=== PATIENT | female | born 1965 | race Caucasian/White ===

== ENCOUNTER 2016-10-22 07:20 | Day surgery (SDC) | payer OTHER ==
[2016-10-22] MEDS ORDERED: MIDAZOLAM 2 MG/2 ML INJ ONE (08:01)
[2016-10-22] MEDS ORDERED: DEXAMETHASONE SOD PHOSPHATE INJ 4 MG/1 ML VIAL ONE (08:01)
[2016-10-22] MEDS ORDERED: FENTANYL CITRATE INJ/PF 100 MCG/2 ML AMPUL ONE (08:01)
[2016-10-22] MEDS ORDERED: ONDANSETRON HCL INJ/PF 4 MG/2 ML SDV ONE (08:02)
[2016-10-22] MEDS ORDERED: SUCCINYLCHOLINE CHLORIDE INJ 200 MG/10 ML VIAL ONE (08:02)
[2016-10-22] MEDS ORDERED: PROPOFOL INJ 200 MG/20 ML VIAL IV ONE (08:02)
[2016-10-22] MEDS ORDERED: MORPHINE SULFATE 10 MG/ML INJ ONE (08:02)
[2016-10-22] MEDS ORDERED: OXYMETAZOLINE HCL 0.05% NASAL SPRAY 15 ML BOTTLE ONE (08:03)
[2016-10-22] MEDS: LIDOCAINE 1%/EPINEPHRINE INJ 20 ML VIAL ONE ×2 (08:36→08:40)
--- NOTE | 2016-10-22 10:43 | [facility] OPERATIVE REPORT E ---
[facility] Operative Report NAME: TEN HUGHES AGE: 51Y DATE OF SURGERY: ROOM: PREOPERATIVE DIAGNOSES: 1. Deviated septum. 2. Nasal obstruction. 3. Lauren bullosa enlargement, bilateral. 4. Inferior turbinate hypertrophy. 5. Frontal sinusitis. POSTOPERATIVE DIAGNOSES: 1. Deviated septum. 2. Nasal obstruction. 3. Lauren bullosa enlargement, bilateral. 4. Inferior turbinate hypertrophy. 5. Frontal sinusitis. OPERATION: 1. Septoplasty. 2. Reduction, lauren bullosa. 3. Inferior turbinate reduction. 4. Sinuplasty - bilateral frontal sinuplasty. 5. Enlargement of the nasal frontal ducts. SURGEON: GENI CRUMP M.D., FACS. ANESTHESIA: General. INDICATIONS: A 51-year-old female with a long history, chronic history of sinus disease, nasal obstruction, recurrent sinus infections, and headache. She has been treated medically to the full extent. Preoperative sinus and CT scans reviewed. Examination of the nose shows a deviated septum corroborated on sinus CT, large lauren bullosa, reduced right nasal fossa. She is taken to the operating room for several surgical procedures for correction and improvement of the nasal airway. Risks and benefits of these procedures discussed and accepted preoperatively. PROCEDURE: General anesthesia via orotracheal tube; patient placed in the slight reverse Trendelenburg position, and prepped and draped for nasal sinus surgery. Time-out procedure was performed. Previously placed Afrin nasal packs removed from the nose. Nose infiltrated with 1% Xylocaine with 1:100,000 epinephrine solution for a total of 8 mL. There was a marked deviated septum noted, large spur formation to the left and a large vomer going to the right. First, septoplasty was performed. A left hemitransfixion incision made, and a left mucoperichondrial flap elevated. Junction between the perpendicular plate of the ethmoid and quadrangular cartilage divided, and a right posterior tunnel created. The large vomer and twist to the left was removed in piecemeal fashion with the open Gladis forceps. Next, an osteotome was used to remove a portion of the maxillary crest, and this was trimmed. The remaining anterior septum was trimmed to allow this to regain a midline position without tension. The flaps were then reapproximated and held in position with 3-0 chromic catgut mattress suture utilizing a quilting technique. The hemitransfixion incision was closed with interrupted 4-0 Vicryl. Next, anterior turbinate reduction was performed with the Kervin elevator. Next, lauren bullosa was reduced bilaterally with the Kristin forceps. Next, a sinuplasty was performed with the Acclarent Sinuplasty apparatus and light-guarded instruments. The sinuplasty Acclarent was inserted through the left nares into the middle meatus. The guidewire with light affixed was inserted into the left frontal. The balloon was then deployed in the usual fashion to 10 atmospheres, and the nasofrontal duct was opened. A similar procedure was performed for the right nasofrontal duct. Patient tolerated the entire procedure well. Next, Rich airway splints were placed in each side of the septum and held in position with 2-0 Prolene suture. A drip pad was applied to the nose. Total blood loss for the procedure approximately 20 mL. Patient was taken to the recovery room area in satisfactory condition. DICTATING PHYSICIAN: GENI CRUMP M.D. [id number] PHY#: [id number] ID: [id number] JOB#: [id number] ACCT: [id number] cc:GENI CRUMP M.D. >
== END 2016-10-22 12:20 | disposition home or self-care (01) ==
LOC: SC 07:20
PROVIDERS: ATTEND Otolaryngology
PROC: 09TL8ZZ Resection of Nasal Turbinate, Via Natural or Artificial Opening Endoscopic (ICD-10-PCS; 2016-10-22)
PROC: 09QS4ZZ Repair Right Frontal Sinus, Percutaneous Endoscopic Approach (ICD-10-PCS; 2016-10-22)
PROC: 09QT4ZZ Repair Left Frontal Sinus, Percutaneous Endoscopic Approach (ICD-10-PCS; 2016-10-22)
PROC: 09BM4ZZ Excision of Nasal Septum, Percutaneous Endoscopic Approach (ICD-10-PCS; principal; 2016-10-22 08:15)
PROC: 095K4ZZ Destruction of Nasal Mucosa and Soft Tissue, Percutaneous Endoscopic Approach (ICD-10-PCS; 2016-10-22 08:15)
DX: J34.2 Deviated nasal septum (principal); J34.89 Other specified disorders of nose and nasal sinuses; J34.3 Hypertrophy of nasal turbinates; J32.1 Chronic frontal sinusitis; D64.9 Anemia, unspecified; G40.909 Epilepsy, unspecified, not intractable, without status epilepticus; E89.0 Postprocedural hypothyroidism; Z79.82 Long term (current) use of aspirin; Z79.899 Other long term (current) drug therapy
CPT/HCPCS: 30520; 31240; 30150; 31296; C1751; J2250; J1100; J3010; J3490 ×2; J2270; J0330; J2405; J2704; 160

== ENCOUNTER 2019-04-01 20:55 | Emergency (ER) | payer OTHER ==
[2019-04-01] MEDS ORDERED: ONDANSETRON 4 MG TAB.RAPDIS PO ONE (22:06)
[2019-04-01] MEDS ORDERED: KETOROLAC TROMETHAMINE 60 MG/2 ML SDV IM ONE (22:06)
[2019-04-01 22:44] LABS: ABSOLUTE EOSINOPHILS # (AUTO) 0.3 10^3/uL (0.0-0.6); ABSOLUTE LYMPHOCYTES (AUTO) 1.7 10^3/uL (0.5-4.7); ABSOLUTE MONOCYTES (AUTO) 0.6 10^3/uL (0.1-1.4); ABSOLUTE NEUT (AUTO) 3.7 10^3/uL (1.7-8.2); BASOPHILS % (AUTO) 0.6 % (0-2); EOSINOPHILS % (AUTO) 4.7 % (0-6); HEMATOCRIT 41.6 % (36.0-47.0); HEMOGLOBIN 14.5 g/dL (12.0-15.5); MEAN CORPUSCULAR HEMOGLOBIN 31.3 pg (27.0-33.4); MEAN CORPUSCULAR HGB CONC 34.9 g/dL (32.0-36.0); MEAN CORPUSCULAR VOLUME 90 fl (80-97); MONOCYTES % (AUTO) 9.2 % (3-13); PLATELET COUNT 313 10^3/uL (150-450); RED BLOOD COUNT 4.64 10^6/uL (3.72-5.28); RED CELL DISTRIBUTION WIDTH 13.3 % (11.5-14.0); SEGMENTED NEUTROPHILS % (AUTO) 58.5 % (42-78); TOTAL CELLS COUNTED % (AUTO) 100 %; WHITE BLOOD COUNT 6.3 10^3/uL (4.0-10.5)
[2019-04-01 22:51] LABS: APPEARANCE,URINE CLOUDY; BILIRUBIN,URINE NEGATIVE (NEGATIVE); CALCIUM OXALATE CRYSTALS,URINE FEW /HPF; COLOR,URINE YELLOW; GLUCOSE, URINE NEGATIVE (NEGATIVE); KETONES,URINE NEGATIVE (NEGATIVE); LEUKOCYTE ESTERASE,URINE TRACE (NEGATIVE); NITRITE,URINE NEGATIVE (NEGATIVE); PROTEIN,URINE 30 mg/dL (NEGATIVE); URINE SPECIFIC GRAVITY 1.015; UROBILINOGEN,URINE NEGATIVE mg/dL (<2.0)
--- NOTE | 2019-04-01 22:54 | ER Document Report ---
ED Medical Screen (RME) - General Chief Complaint: Flank Pain Stated Complaint: LEFT SIDED ABDOMINAL PAIN/HEMATURIA Time Seen by Provider: 04/01/19 22:03 Primary Care Provider: LAURYN CABELLO NP [Primary Care Provider] - Follow up as needed TRAVEL OUTSIDE OF THE [place] IN LAST 30 DAYS: No - HPI Notes: 04/01/19 22:07 54-year-old female to the emergency department with complaints of left-sided flank pain that began 1 week ago and has not gotten better. She states that saw her primary care physician and was placed on Cipro for possible urinary tract infection. She states she completed the 5-day course of Cipro but her pain is continued. She states that she is noted dark urine and today she saw blood in it. She states she does not have a history of kidney stones. She does admit to a history of pyelonephritis. She denies any fevers or chills. She denies any vomiting but endorses nausea. She denies any diarrhea. I performed a brief medical screening exam on the patient. On brief exam, she has left upper quadrant and left lower quadrant abdominal pain. She has no rebound or guarding. She is no CVA tenderness bilaterally. However her report of flank pain with hematuria is concerning for possible kidney stone so we will send for CT scan and obtain labs. Left main side ER provider further evaluate and manage her care at this evening. - Related Data Allergies/Adverse Reactions: No Known Allergies Allergy (Verified 10/22/16 07:50) Home Medications: Synthroid Past Medical History - Social History Frequency of alcohol use: None Drug Abuse: None - Past Medical History Cardiac Medical History: Reports: Hx Hypercholesterolemia Denies: Hx Heart Attack, Hx Hypertension Pulmonary Medical History: Denies: Hx Asthma Neurological Medical History: Reports: Hx Seizures - LAST 26 YRS AGO. Denies: Hx Cerebrovascular Accident Endocrine Medical History: Reports: Hx Hypothyroidism GI Medical History: Reports: Hx Gastroesophageal Reflux Disease, Hx Irritable Bowel, Hx Colonoscopy, Hx Endoscopy. Denies: Hx Hepatitis, Hx Hiatal Hernia, Hx Ulcer Musculoskeltal Medical History: Reports Hx Arthritis, Reports Hx Musculoskeletal Deformity, Reports Hx Musculoskeletal Trauma Psychiatric Medical History: Reports: Hx Anxiety, Hx Depression Traumatic Medical History: Reports: Hx Fractures Infectious Medical History: Denies: Hx Hepatitis Past Surgical History: Reports: Hx Breast Surgery - Masses removed, Hx Hysterectomy, Hx Kidney (Renal Surgery) - Adrenal mass removed, Hx Orthopedic Surgery - bunion removal james feet plate in right fifth finger, Hx Thyroid Surgery - Heart of thyroid removed. Denies: Hx Mastectomy, Hx Open Heart Surgery, Hx Pacemaker - Immunizations Hx Diphtheria, Pertussis, Tetanus Vaccination: Yes Physical Exam - Vital signs Vitals: Temp Pulse Resp BP Pulse Ox 97.7 F 92 16 161/92 H 98 04/01/19 21:27 04/01/19 21:27 04/01/19 21:27 04/01/19 21:27 04/01/19 21:27 Course - Vital Signs Vital signs: Temp Pulse Resp BP Pulse Ox 97.7 F 92 16 161/92 H 98 04/01/19 21:27 04/01/19 21:27 04/01/19 21:27 04/01/19 21:27 04/01/19 21:27 Doctor's Discharge - Discharge Referrals: LAURYN CABELLO, [facility] REPA[facility] [Primary Care Provider] - Follow up as needed
[2019-04-01 23:00] LABS: ALBUMIN 4.4 g/dL (3.5-5.0); ALKALINE PHOSPHATASE 94 U/L (38-126); ANION GAP 10 (5-19); ASPARTATE AMINO TRANSFERASE 39 U/L (14-36); BILIRUBIN,DIRECT 0.2 mg/dL (0.0-0.4); BILIRUBIN,TOTAL 0.3 mg/dL (0.2-1.3); BLOOD UREA NITROGEN 10 mg/dL (7-20); CALCIUM 10.1 mg/dL (8.4-10.2); CARBON DIOXIDE 31 mmol/L (22-30); CHLORIDE 100 mmol/L (98-107); GLUCOSE 109 mg/dL (75-110); POTASSIUM 4.3 mmol/L (3.6-5.0); TOTAL PROTEIN 7.7 g/dL (6.3-8.2)
--- NOTE | 2019-04-02 00:37 | RADIOLOGY REPORT (SQ) ---
EXAM DESCRIPTION: CT ABDOMEN PELVIS WITHOUT IV CONTRAST COMPLETED DATE/TME: 04/01/2019 22:05 CLINICAL HISTORY: 54 years Female, left flank pain Comparison: None. Technique: No contrast. Coronal and sagittal reformat. This exam was performed according to our departmental dose-optimization program, which includes automated exposure control, adjustment of the mA and/or kV according to patient size and/or use of iterative reconstruction technique.[facility]: Dose Right [facility]: CareDose [facility]: Dose Right [facility]: Teradose 4D [facility]: [employer] LIMITATIONS: None Findings: 0.2 cm x 0.4 cm left proximal ureteral stone at the L2 level with mild left hydronephrosis/hydroureter. 0.4 cm right renal stone. Atherosclerotic vascular disease. Left renal arterial calcification. Calcification at the right adrenal fossa probably due to prior adrenal insult. Small focal right gluteal subcutaneous emphysema. No ascites. No pneumoperitoneum. No evidence of appendicitis. Appendix not definitively discerned. No bowel obstruction. No evidence of abdominal aortic aneurysm. No gross evidence of thecal sac/cord or nerve root compression. Unenhanced lower thorax, abdominopelvic structures, and musculoskeleton appear otherwise grossly unremarkable. Impression: 1. 0.4 x 0.2 cm left proximal ureteral stone with low-grade obstruction. 2. 0.4 cm right renal stone.
--- NOTE | 2019-04-02 06:16 | ER Document Report ---
ED General - General Chief Complaint: Flank Pain Stated Complaint: LEFT SIDED ABDOMINAL PAIN/HEMATURIA Time Seen by Provider: 04/01/19 22:03 Primary Care Provider: LAURYN CABELLO [facility] [Primary Care Provider] - Follow up as needed TRAVEL OUTSIDE OF THE [place] IN LAST 30 DAYS: No - HPI Notes: This is a 54-year-old female who presents today with a complaint of left flank pain, hematuria that started last night. Patient states that this feels like a kidney stone pain. She describes her symptoms as moderate. She denies any fever or chills. The pain was worse with palpation. Patient was given Toradol prior to my evaluation. She feels much better now. In fact, she was sleeping when I got into the room. She states that helped significantly. - Related Data Allergies/Adverse Reactions: No Known Allergies Allergy (Verified 10/22/16 07:50) Home Medications: Synthroid Past Medical History - Social History Smoking Status: Never Smoker Frequency of alcohol use: None Drug Abuse: None Family History: Arthritis, CVA, Hyperlipidemia, Hypertension, Malignancy Patient has suicidal ideation: No Patient has homicidal ideation: No - Past Medical History Cardiac Medical History: Reports: Hx Hypercholesterolemia Denies: Hx Heart Attack, Hx Hypertension Pulmonary Medical History: Denies: Hx Asthma Neurological Medical History: Reports: Hx Seizures - LAST 26 YRS AGO. Denies: Hx Cerebrovascular Accident Endocrine Medical History: Reports: Hx Hypothyroidism GI Medical History: Reports: Hx Gastroesophageal Reflux Disease, Hx Irritable Bowel, Hx Colonoscopy, Hx Endoscopy. Denies: Hx Hepatitis, Hx Hiatal Hernia, Hx Ulcer Musculoskeletal Medical History: Reports Hx Arthritis, Reports Hx Musculoskeletal Deformity, Reports Hx Musculoskeletal Trauma Psychiatric Medical History: Reports: Hx Anxiety, Hx Depression Traumatic Medical History: Reports: Hx Fractures Infectious Medical History: Denies: Hx Hepatitis Past Surgical History: Reports: Hx Breast Surgery - Masses removed, Hx Hysterectomy, Hx Kidney (Renal Surgery) - Adrenal mass removed, Hx Orthopedic Surgery - bunion removal james feet plate in right fifth finger, Hx Thyroid Surgery - Heart of thyroid removed. Denies: Hx Mastectomy, Hx Open Heart Surgery, Hx Pacemaker - Immunizations Hx Diphtheria, Pertussis, Tetanus Vaccination: Yes Review of Systems - Review of Systems Cardiovascular: denies: Chest pain Gastrointestinal: denies: Diarrhea, Vomiting Genitourinary: Flank pain, Hematuria. denies: Dysuria Neurological/Psychological: denies: Headaches -: Yes All other systems reviewed and negative Physical Exam - Vital signs Vitals: Temp Pulse Resp BP Pulse Ox 97.7 F 92 16 161/92 H 98 04/01/19 21:27 04/01/19 21:27 04/01/19 21:27 04/01/19 21:27 04/01/19 21:27 - General General appearance: Appears well, Alert - Respiratory Respiratory status: No respiratory distress Chest status: Nontender Breath sounds: Normal Chest palpation: Normal - Cardiovascular Rhythm: Regular Heart sounds: Normal auscultation Murmur: No - Abdominal Inspection: Normal - Unremarkable exam. No tenderness. Distension: No distension Bowel sounds: Normal Tenderness: Nontender Organomegaly: No organomegaly - Back Back: Normal, Nontender. No: CVA tenderness - Neurological Neuro grossly intact: Yes Cognition: Normal Orientation: AAOx4 Con Coma Scale Eye Opening: Spontaneous Con Coma Scale Verbal: Oriented Con Coma Scale Motor: Obeys Commands Con Coma Scale Total: 15 Speech: Normal Motor strength normal: LUE, RUE, LLE, RLE Sensory: Normal - Psychological Associated symptoms: Normal affect, Normal mood Course - Re-evaluation Re-evalutation: 04/02/19 06:18 Letter capacious consistent with right ureteral colic and probably mild UTI. Labs and CT reviewed and discussed with patient. We will put her on Percocet for pain. Will cover her bacteriuria with Keflex. She is stable for discharge. - Vital Signs Vital signs: Temp Pulse Resp BP Pulse Ox 97.4 F 71 19 155/79 H 97 04/02/19 01:49 04/02/19 01:49 04/02/19 01:49 04/02/19 01:49 04/02/19 01:49 - Laboratory Result Diagrams: 04/01/19 22:25 04/01/19 22:25 Laboratory results interpreted by me: 04/01/19 04/01/19 22:25 22:25 Carbon Dioxide 31 H AST 39 H Urine Protein 30 H Urine Blood LARGE H Ur Leukocyte Esterase TRACE H Discharge - Discharge Clinical Impression: Renal colic, Acute UTI Condition: Good Disposition: HOME, SELF-CARE Instructions: Urinary Tract Infection ([facility]), Cephalexin ([facility]), Kidney Stone ([facility]) Additional Instructions: Return if fever, worse or concerns. Prescriptions: Tamsulosin HCl [Flomax 0.4 mg Cap.sr] 0.4 mg PO DAILY #7 cap.sr.24h Cephalexin Monohydrate [Keflex 500 mg Capsule] 500 mg PO TID 10 Days #30 capsule Oxycodone HCl/Acetaminophen [Percocet 5-325 mg Tablet] 1 tab PO Q6 PRN #15 tab PRN Reason: For Pain Referrals: LAURYN CABELLO, [facility] [Primary Care Provider] - Follow up as needed
[2019-04-02] MEDS ORDERED: CEPHALEXIN 500 MG CAPSULE PO ONE (06:20)
[2019-04-02 06:42] VITALS: BP 158/68
== END 2019-04-02 06:40 | disposition home or self-care (01) ==
LOC: ER 20:55
DX: N39.0 Urinary tract infection, site not specified (principal); R31.9 Hematuria, unspecified; N23 Unspecified renal colic; R82.71 Bacteriuria; Z87.19 Personal history of other diseases of the digestive system
CPT/HCPCS: 36415; 83690; 84703; 85025; 80053; 81001; 74176; J1885; S0119; 96374; 99284

== ENCOUNTER 2019-06-05 03:02 | Emergency (ER) | payer OTHER ==
[2019-06-05 03:51] LABS: ALBUMIN 4.7 g/dL (3.5-5.0); ALKALINE PHOSPHATASE 111 U/L (38-126); ANION GAP 12 (5-19); ASPARTATE AMINO TRANSFERASE 30 U/L (14-36); BILIRUBIN,DIRECT 0.2 mg/dL (0.0-0.4); BILIRUBIN,TOTAL 0.5 mg/dL (0.2-1.3); BLOOD UREA NITROGEN 12 mg/dL (7-20); CALCIUM 10.2 mg/dL (8.4-10.2); CARBON DIOXIDE 28 mmol/L (22-30); CHLORIDE 98 mmol/L (98-107); GLUCOSE 161 mg/dL (75-110); POTASSIUM 3.9 mmol/L (3.6-5.0); TOTAL PROTEIN 8.2 g/dL (6.3-8.2)
[2019-06-05 03:52] LABS: ABSOLUTE BASOPHILS # (AUTO) 0.1 10^3/uL (0.0-0.2); ABSOLUTE EOSINOPHILS # (AUTO) 0.2 10^3/uL (0.0-0.6); ABSOLUTE LYMPHOCYTES (AUTO) 1.8 10^3/uL (0.5-4.7); ABSOLUTE MONOCYTES (AUTO) 0.7 10^3/uL (0.1-1.4); ABSOLUTE NEUT (AUTO) 5.4 10^3/uL (1.7-8.2); BASOPHILS % (AUTO) 0.7 % (0-2); HEMATOCRIT 46.3 % (36.0-47.0); HEMOGLOBIN 15.9 g/dL (12.0-15.5); LYMPHOCYTES % (AUTO) 22.2 % (13-45); MEAN CORPUSCULAR HEMOGLOBIN 30.7 pg (27.0-33.4); MEAN CORPUSCULAR HGB CONC 34.3 g/dL (32.0-36.0); MEAN CORPUSCULAR VOLUME 89 fl (80-97); MONOCYTES % (AUTO) 8.9 % (3-13); PLATELET COUNT 343 10^3/uL (150-450); RED BLOOD COUNT 5.18 10^6/uL (3.72-5.28); RED CELL DISTRIBUTION WIDTH 13.1 % (11.5-14.0); SEGMENTED NEUTROPHILS % (AUTO) 66.2 % (42-78); TOTAL CELLS COUNTED % (AUTO) 100 %; WHITE BLOOD COUNT 8.2 10^3/uL (4.0-10.5)
--- NOTE | 2019-06-05 06:48 | ER Document Report ---
ED General - General Chief Complaint: Flank Pain Stated Complaint: RIGHT LOWER QUADRANT PAIN Time Seen by Provider: 06/05/19 06:15 Primary Care Provider: MAT WELLS MD [Primary Care Provider] - Follow up as needed TRAVEL OUTSIDE OF THE [place] IN LAST 30 DAYS: No - HPI Notes: Patient is a 54-year-old female who presents the emergency department for evaluation. She states that about 1:00 in the morning she woke up, had a bowel movement. She described it is loose. Following this she developed a pressure type pain in the right side of her abdomen. She had nausea with 4 episodes of nonbloody, nonbilious emesis. She states her pain persisted so she presented to the emergency department. She states it is worse it was a 9 out of 10, currently states it is much improved, "barely there." She is had no fevers or chills. Normal appetite prior to this. Eating and drinking normally. No vaginal discharge, no urinary symptoms. - Related Data Allergies/Adverse Reactions: No Known Allergies Allergy (Verified 10/22/16 07:50) Home Medications: Synthroid, Lexapro, atorvastatin, phenobarbital Past Medical History - General Information source: Patient - Social History Smoking Status: Never Smoker Family History: Arthritis, CVA, Hyperlipidemia, Hypertension, Malignancy Patient has suicidal ideation: No Patient has homicidal ideation: No - Past Medical History Cardiac Medical History: Reports: Hx Hypercholesterolemia Denies: Hx Heart Attack, Hx Hypertension Pulmonary Medical History: Denies: Hx Asthma Neurological Medical History: Reports: Hx Seizures - LAST 26 YRS AGO. Denies: Hx Cerebrovascular Accident Endocrine Medical History: Reports: Hx Hypothyroidism GI Medical History: Reports: Hx Gastroesophageal Reflux Disease, Hx Irritable Bowel, Hx Colonoscopy, Hx Endoscopy. Denies: Hx Hepatitis, Hx Hiatal Hernia, Hx Ulcer Musculoskeletal Medical History: Reports Hx Arthritis, Reports Hx Musculoskeletal Deformity, Reports Hx Musculoskeletal Trauma Psychiatric Medical History: Reports: Hx Anxiety, Hx Depression Traumatic Medical History: Reports: Hx Fractures Infectious Medical History: Denies: Hx Hepatitis Past Surgical History: Reports: Hx Breast Surgery - Masses removed, Hx Hysterectomy, Hx Kidney (Renal Surgery) - Adrenal mass removed, Hx Orthopedic Surgery - bunion removal james feet plate in right fifth finger, Hx Thyroid Surge ry - Heart of thyroid removed. Denies: Hx Mastectomy, Hx Open Heart Surgery, Hx Pacemaker - Immunizations Hx Diphtheria, Pertussis, Tetanus Vaccination: Yes Review of Systems - Review of Systems Constitutional: No symptoms reported EENT: No symptoms reported Cardiovascular: No symptoms reported Respiratory: No symptoms reported Gastrointestinal: See HPI Genitourinary: No symptoms reported Female Genitourinary: No symptoms reported Musculoskeletal: No symptoms reported Skin: No symptoms reported Neurological/Psychological: No symptoms reported Physical Exam - Vital signs Vitals: Temp Pulse BP Pulse Ox 97.5 F 79 153/98 H 99 06/05/19 03:13 06/05/19 03:13 06/05/19 03:13 06/05/19 03:13 - Notes Notes: Vital signs reviewed, please refer to chart. Head is normocephalic, atraumatic. Pupils equal round, reactive to light. Neck is supple without meningismus. Heart is regular rate and rhythm. Lungs are clear to auscultation bilaterally. Abdomen is soft, mildly tender in the right upper and lower quadrants without rebound or guarding, normoactive bowel sounds throughout. Extremities without cyanosis, clubbing. Posterior calves are nontender. Peripheral pulses are equal. Skin is warm and dry. Patient is awake, alert, neurological exam is nonfocal. Course - Re-evaluation Re-evalutation: 06/05/19 06:47 Patient presents emergency department for evaluation. She had laboratory investigations as initially ordered through triage. She has not yet produced a urine sample. Her labs are largely unremarkable at this time. Her pain has subsided without treatment. Awaiting urine sample, as the patient had been diagnosed with renal colic in the past, determine if any further imaging is needed. We will continue to monitor. 06/05/19 07:43 Urinalysis reveals large blood. CT scan of the abdomen pelvis sent to evaluate for possible stone. 06/05/19 08:[address] scan reveals UVJ stone, at a size likely to pass. We will send her home with Flomax, symptomatic medications, close follow-up. She is to return to the ED with worsening. - Vital Signs Vital signs: Temp Pulse Resp BP Pulse Ox 97.5 F 79 153/98 H 99 06/05/19 03:13 06/05/19 03:13 06/05/19 03:13 06/05/19 03:13 - Laboratory Result Diagrams: 06/05/19 02:50 01/11/20 02:50 Laboratory results interpreted by me: 06/05/19 06/05/19 06/05/19 02:50 02:50 07:01 Hgb 15.9 H Glucose 161 H Urine Protein 30 H Urine Glucose (UA) 50 H Urine Ketones TRACE H Urine Blood LARGE H Ur Leukocyte Esterase TRACE H Discharge - Discharge Clinical Impression: Right ureteral stone Condition: Stable Disposition: HOME, SELF-CARE Instructions: Kidney Stone ([facility]) Additional Instructions: Rest, stay well-hydrated. Take medications as prescribed. Watch for dizziness with the Flomax. Follow-up with primary care in 1 to 2 weeks. If you develop fevers, increased vomiting, or any other new or concerning symptoms, please return immediately to the emergency department for evaluation. Referrals: MAT WELLS MD [Primary Care Provider] - Follow up as needed
[2019-06-05 07:18] LABS: APPEARANCE,URINE CLOUDY; BILIRUBIN,URINE NEGATIVE (NEGATIVE); CALCIUM OXALATE CRYSTALS,URINE MODERATE /HPF; COLOR,URINE YELLOW; GLUCOSE, URINE 50 mg/dL (NEGATIVE); KETONES,URINE TRACE mg/dL (NEGATIVE); LEUKOCYTE ESTERASE,URINE TRACE (NEGATIVE); NITRITE,URINE NEGATIVE (NEGATIVE); PROTEIN,URINE 30 mg/dL (NEGATIVE); URINE SPECIFIC GRAVITY 1.014; UROBILINOGEN,URINE NEGATIVE mg/dL (<2.0)
--- NOTE | 2019-06-05 08:20 | RADIOLOGY REPORT (SQ) ---
EXAM DESCRIPTION: CT ABD/PELVIS NO ORAL OR IV COMPLETED DATE/TIME: 06/05/2019 8:09 am REASON FOR STUDY: right flank pain, eval for stone COMPARISON: 04/01/2019 TECHNIQUE: CT scan of the abdomen and pelvis performed without intravenous or oral contrast. Images reviewed with lung, soft tissue, and bone windows. Reconstructed coronal and sagittal MPR images revi ewed. All images stored on PACS. All CT scanners at this facility use dose modulation, iterative reconstruction, and/or weight based d osing when appropriate to reduce radiation dose to as low as reasonably achievable (ALARA). [facility]: Dose Right [facility]: CareDose [facility]: Dose Right [facility]: Teradose 4D [facility]: [employer] RADIATION DOSE: CT Rad equipment meets quality standard of care and radiation dose reduction techniq ues were employed. CTDIvol: 5.3 mGy. DLP: 291 mGy-cm.mGy. LIMITATIONS: None. FINDINGS: LOWER CHEST: Clear. NON-CONTRASTED LIVER, SPLEEN, ADRENALS: Liver and spleen normal. Right adrenal not seen. Surgical c lip in the location of the right adrenal gland. PANCREAS: No masses. No peripancreatic inflammatory changes. GALLBLADDER: No identified stones by CT criteria. No inflammatory changes to suggest cholecystitis. RIGHT KIDNEY AND URETER: Moderate hydronephrosis due to a stone at the ureteropelvic junction measuri ng 4 mm. LEFT KIDNEY AND URETER: No solid masses. No significant calcification. No hydronephrosis or hydrouret er. AORTA AND RETROPERITONEUM: No aneurysm. No retroperitoneal masses or adenopathy. BOWEL AND PERITONEAL CAVITY: No obvious masses or inflammatory changes. No free fluid. APPENDIX: Normal. PELVIS, BLADDER, AND ABDOMINAL WALL:No abnormal masses. No free fluid. Bladder normal. BONES: No significant findings. OTHER: No other significant finding. IMPRESSION: 1. Right obstructive uropathy. Moderate hydronephrosis due to a stone measuring 4 mm at the junction of the renal pelvis and ureter. TECHNICAL DOCUMENTATION: JOB ID: [id number] Quality ID # [id number]: Final reports with documentation of one or more dose reduction techniques (e.g., Au tomated exposure control, adjustment of the mA and/or kV according to patient size, use of iterative reconstruction technique) 2010 [employer]- All Rights Reserved Reading location - IP/workstation name: [email or web address]
[2019-06-05] MEDS ORDERED: TAMSULOSIN HCL 0.4 MG CAP.SR.24H PO ONE (08:21)
[2019-06-05 09:04] VITALS: BP 131/81
== END 2019-06-05 08:55 | disposition home or self-care (01) ==
LOC: ER 03:02
DX: N20.1 Calculus of ureter (principal); R10.9 Unspecified abdominal pain; R10.31 Right lower quadrant pain; R19.7 Diarrhea, unspecified; R11.2 Nausea with vomiting, unspecified
CPT/HCPCS: 36415; 74176; 80053; 81001; 83690; 85025; 99284

== ENCOUNTER → 2019-08-12 | Outpatient (CLI) | payer OTHER ==
--- NOTE | 2019-08-12 14:10 | RADIOLOGY REPORT (SQ) ---
EXAM DESCRIPTION: U/S RETROPERITON (RENAL/AORTA) COMPLETED DATE/TIME: 08/12/2019 1:54 pm REASON FOR STUDY: N20.0 CALCULUS OF KIDNEY N20.0 CALCULUS OF KIDNEY COMPARISON: 06/05/2019 TECHNIQUE: Dynamic and static grayscale images acquired of the kidneys and bladder and recorded on P ACS. Additional selected color Doppler and spectral images recorded. LIMITATIONS: None. FINDINGS: RIGHT KIDNEY: The right kidney measures 10.5 cm in length. Normal echogenicity. No so lid or suspicious masses. There is mild right-sided hydronephrosis. No calcifications. LEFT KIDNEY: The left kidney measures 10.4 cm in length. Normal echogenicity. No solid or suspic ious masses. No hydronephrosis. No calcifications. BLADDER: No masses. OTHER FINDINGS: No other significant finding. IMPRESSION: Mild right-sided hydronephrosis. TECHNICAL DOCUMENTATION: JOB ID: [id number] 2010 [employer]- All Rights Reserved Reading location - IP/workstation name: [email or web address]
== END ==
LOC: RAD 13:06
PROVIDERS: ATTEND Urology
DX: N20.0 Calculus of kidney (principal); N20.1 Calculus of ureter
CPT/HCPCS: 76770

== ENCOUNTER → 2019-09-27 | Outpatient (CLI) | payer OTHER ==
--- NOTE | 2019-09-27 13:09 | RADIOLOGY REPORT (SQ) ---
EXAM DESCRIPTION: CT ABD/PELVIS COMBO IMAGES COMPLETED DATE/TIME: 09/27/2019 11:25 am REASON FOR STUDY: CALCULUS OF KIDNEY (N20.0), CALCULUS OF URETER (N20.1) N20.0 CALCULUS OF KIDNEY COMPARISON: CT of the abdomen and pelvis without contrast from 06/05/2019 and renal ultrasound from . TECHNIQUE: CT scan of the abdomen and pelvis performed with and without intravenous contrast, and wi thout oral contrast. Contrasted imaging performed helical scanning technique and dynamic intravenous contrast injection. Images reviewed with lung, soft tissue, and bone windows. Reconstructed coronal a nd sagittal MPR images reviewed. Delayed images for evaluation of the urinary system also acquired. A ll images stored on PACS. All CT scanners at this facility use dose modulation, iterative reconstruction, and/or weight based d osing when appropriate to reduce radiation dose to as low as reasonably achievable (ALARA). [facility]: Dose Right [facility]: CareDose [facility]: Dose Right [facility]: Teradose 4D [facility]: AVIA CONTRAST TYPE AND DOSE: Contrast/concentration: Isovue 350.00 mg/ml; Total Contrast Delivered: 75.0 ml; Total Saline Delivered: 58.0 ml RENAL FUNCTION: Creatinine 0.7 milligrams/deciliter RADIATION DOSE: CT Rad equipment meets quality standard of care and radiation dose reduction techniq ues were employed. CTDIvol: 5.1 - 5.8 mGy. DLP: 887 mGy-cm. . LIMITATIONS: None. FINDINGS: NON-CONTRASTED IMAGING: No CT evidence of hepatic steatosis. No nephrolithiasis or ureter olithiasis. POST-CONTRASTED IMAGING: LOWER CHEST: No acute findings LIVER: The morphology of the liver is noncirrhotic. The portal veins are patent. There is no hepati c mass. SPLEEN: There is a round hypodense lesion in the upper pole of the spleen that measures 12 x 11 mm. PANCREAS: No acute abnormality. GALLBLADDER: No abnormality that is apparent on CT. ADRENAL GLANDS: Stable radiodensities within the right suprarenal fossa. There is no left adrenal ma ss. RIGHT KIDNEY AND URETER: There is no solid mass, hydronephrosis or hydroureter. There are no filling defects within the renal calices, pelvis or proximal to mid ureter (evaluation of the mid to distal ureter is limited as it is not opacified with excreted contrast). The subcentimeter cortical-based h ypodensities evident on the excretory phase are too small to characterize. LEFT KIDNEY AND URETER: There is no solid mass, hydronephrosis or hydroureter. There are no filling defects within the renal calices, pelvis or proximal to mid ureter (evaluation of the mid to distal u reter is limited as it is not opacified with excreted contrast). The subcentimeter cortical-based hy podensities evident on the excretory phase are too small to characterize. AORTA AND VESSELS: No aneurysm or dissection of the abdominal aorta. RETROPERITONEUM: No retroperitoneal adenopathy, hemorrhage or mass. BOWEL AND PERITONEAL CAVITY: No bowel obstruction, bowel wall thickening or pericolonic/ perienteric inflammation. No mesenteric adenopathy, free intraperitoneal fluid or mesenteric/ omental inflammati on. APPENDIX: Normal. PELVIS: The urinary bladder is partially distended. There is no pelvic mass ABDOMINAL WALL: No mass or hernia. BONES: No fracture or osseous lesion. OTHER: No other finding. IMPRESSION: 1. No acute intra-abdominal abnormality. 2. Subcentimeter cortical based hypodensities in both kidneys there was too small to characterize. There is no solid renal mass, hydronephrosis, nephrolithiasis, hydroureter or ureterolithiasis. On t he excretory phase there are no filling defects within the renal calices, pelves or proximal to mid u reters (evaluation of the mid to distal ureters is limited as they are not opacified with excreted co ntrast). 3. Indeterminate 12 x 11 mm hypodense lesion in the upper pole of the spleen. TECHNICAL DOCUMENTATION: JOB ID: [id number] Quality ID # [id number]: Final reports with documentation of one or more dose reduction techniques (e.g., Au tomated exposure control, adjustment of the mA and/or kV according to patient size, use of iterative reconstruction technique) 2010 [employer]- All Rights Reserved Reading location - IP/workstation name: [email or web address]
== END ==
LOC: RAD 09:52
PROVIDERS: ATTEND Urology
DX: N20.0 Calculus of kidney (principal); N20.1 Calculus of ureter
CPT/HCPCS: 74178; 82565

== ENCOUNTER → 2020-01-13 | Day surgery (SDC) | payer OTHER ==
[~2020-01-13] MED LIST: LIDOCAINE 1%/EPINEPHRINE INJ 20 ML VIAL ONE
== END ==
LOC: RAD 01-06 09:12
PROVIDERS: ATTEND Surgery
DX: N63.10 Unspecified lump in the right breast, unspecified quadrant (principal)
CPT/HCPCS: 19081; J3490

== ENCOUNTER 2020-02-23 08:33 | Day surgery (SDC) | payer OTHER ==
[2020-02-18 11:44] LABS: HEMATOCRIT 43.9 % (36.0-47.0); HEMOGLOBIN 15.2 g/dL (12.0-15.5); MEAN CORPUSCULAR HEMOGLOBIN 31.2 pg (27.0-33.4); MEAN CORPUSCULAR HGB CONC 34.6 g/dL (32.0-36.0); MEAN CORPUSCULAR VOLUME 90 fl (80-97); PLATELET COUNT 292 10^3/uL (150-450); RED BLOOD COUNT 4.86 10^6/uL (3.72-5.28); WHITE BLOOD COUNT 5.4 10^3/uL (4.0-10.5)
[2020-02-18 11:55] LABS: ANION GAP 8 (5-19); BLOOD UREA NITROGEN 11 mg/dL (7-20); CALCIUM 9.7 mg/dL (8.4-10.2); CARBON DIOXIDE 33 mmol/L (22-30); CHLORIDE 98 mmol/L (98-107); GLUCOSE 82 mg/dL (75-110); POTASSIUM 4.7 mmol/L (3.6-5.0)
[~2020-02-23 08:33] MED LIST changes: +CEFAZOLIN 1 GM/D5W RTU 1 GM/50 ML RTUPB IV PRN; +LACTATED RINGERS 1000 ML IV PRN; +LIDOCAINE 0.5% INJ-PF (5 MG/ML) 50 ML SDV SUBCUT PRN; +LIDOCAINE 4% CREAM 5 GM TUBE TP PRN; +METHYLENE BLUE 50 MG/10 ML AMPULE ONE; +MICROFIBRILLAR COLLAGEN 1 GM PACK ONE
[2020-02-23] MEDS ORDERED: LIDOCAINE 4% CREAM 5 GM TUBE ONE (08:48)
[2020-02-23] MEDS ORDERED: CEFAZOLIN 1 GM/D5W RTU 1 GM/50 ML RTUPB IV ONE (08:48)
--- NOTE | 2020-02-23 10:54 | RADIOLOGY REPORT (SQ) ---
EXAM DESCRIPTION: NM LYMPHATICS/LYMPH GLANDS IMAGES COMPLETED DATE/TIME: 02/23/2020 10:36 am REASON FOR STUDY: BREAST CANCER C50.911 MALIGNANT NEOPLASM OF UNSP SITE OF RIGHT FEMALE TSERING COMPARISON: None. RADIONUCLIDE AND DOSE: 602 microcuries TC-99m tilmanocept - [employer]. The route of agent administration: Subcutaneous in the skin. TECHNIQUE: The skin of the right breast was prepped in sterile fashion. The radiopharmaceutical was administered in equally divided doses in the periareolar breast. LIMITATIONS: None. FINDINGS: Images demonstrate activity at the injection site. IMPRESSION: ADMINISTRATION OF RADIOPHARMACEUTICAL FOR SENTINEL LYMPH NODE EVALUATION. TECHNICAL DOCUMENTATION: JOB ID: [id number] 2010 [employer]- All Rights Reserved Reading location - IP/workstation name: [email or web address]
[2020-02-23] MEDS ORDERED: DEXAMETHASONE SOD PHOSPHATE INJ 4 MG/1 ML VIAL ONE (11:05)
[2020-02-23] MEDS ORDERED: FENTANYL CITRATE INJ/PF 100 MCG/2 ML AMPUL ONE (11:05)
[2020-02-23] MEDS ORDERED: MIDAZOLAM 2 MG/2 ML INJ ONE (11:05)
[2020-02-23] MEDS ORDERED: ONDANSETRON HCL INJ/PF 4 MG/2 ML SDV ONE (11:05)
[2020-02-23] MEDS ORDERED: MORPHINE SULFATE 10 MG/ML INJ ONE (11:06)
[2020-02-23] MEDS ORDERED: PROPOFOL INJ 200 MG/20 ML VIAL IV ONE (11:06)
[2020-02-23] MEDS ORDERED: DIPHENHYDRAMINE HCL 50 MG/ML VIAL IV PRN (11:54)
[2020-02-23] MEDS ORDERED: PROMETHAZINE HCL INJ 25 MG/1 ML VIAL IV PRN ×2 (11:54)
[2020-02-23] MEDS ORDERED: MEPERIDINE HCL/PF INJ 25 MG/1 ML DISP.SYRIN IV PRN (11:54)
[2020-02-23] MEDS ORDERED: OXYCODONE-ACETAMINOPHEN 5-325 MG TABLET PO PRN ×3 (11:54→12:50)
[2020-02-23] MEDS ORDERED: FENTANYL CITRATE INJ/PF 100 MCG/2 ML AMPUL IV PRN ×3 (11:54)
[2020-02-23] MEDS ORDERED: MORPHINE SULFATE 10 MG/ML INJ IV PRN (11:54)
--- NOTE | 2020-02-23 12:49 | Operative Report ---
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 Needle localized open right breast biopsy. 2. Use of intraoperative ultrasonography to assist in dissection. 3. Right axillary sentinel lymph node biopsy x1. 4. Interpretation of intraoperative specimen radiograph SURGEON: OBEY ALEXIS 1ST HUMAN RESOURCE PROFESSIONAL: GLYNN PLAZA ANESTHESIA: GA TISSUE REMOVED OR ALTERED: 1 lumpectomy specimen; posterior cavity margin; 1 axillary sentinel lymph node COMPLICATIONS: None ESTIMATED BLOOD LOSS: 5 cc PROCEDURE: The patient was seen in the preop holding area after undergoing lymphoscintigraphy of the right breast, and needle and wire localization of the right breast tumor and clip marker by Dr. Obey Ulrich. Bedside neoprobe analysis showed an area of increased uptake in the low axilla consistent with successful sentinel lymph node mapping. The patient was then taken to the main operating room and general anesthesia was induced via LMA. The right arm was abducted, right chest, breast, and axilla all exposed. The upper outer aspect of the right [place] was prepped with alcohol, and the skin injected with 2 cc of methylene blue using a 25-gauge n eedle in the superficial dermis. The right breast was massaged, then the right breast, and axilla were prepped and draped sterile fashion. Prior to prepping and draping, the hub of the localization needle and wire was amputated with a wire cutters. We brought onto the field the variable frequency linear transducer and scanned the right breast. I could see the needle tracking into the substance of the lateral aspect of the right breast, and the small tumor just adjacent to the wire. Photos were taken. The skin was anesthetized in the lateral aspect of the right breast anterior to the localization wire. An approximately 5 cm slightly curvilinear incision was made over the lateral aspect of the right breast. Subcutaneous tissue divided with cautery, skin flaps were raised in a circumferential fashion, using ultrasound as a guide, a lumpectomy specimen was removed using electrocautery. The wire reduction needle were amputated to facilitate the dissection. Once the specimen, which was approximately 5 x 5 x 5 cm was removed from the right breast, it was oriented with a long suture in the lateral position a short suture in the superior position. Ultrasonography on the specimen ex vivo demonstrated retention of the tumor. We then placed the specimen on a Rachana dish and photographed it using the intraoperative portable radiograph machine and this confirmed the presence of the wire, tumor, clip previously placed and residue of the tumor. The specimen was personally taken by Dr. Alexis to Dr. Dykes, pathologist, who inked the specimen and sliced it vertically. She felt that the tumor was retained within the center of the specimen, but to be certain the posterior margin was clear she recommended a cavity margin resection. Dr. Alexis scrubbed back in, and removed the posterior cavity wall using electrocautery. This sliver of fatty tissue was approximately 4 x 4 x 1 cm thick. It too was oriented with a long suture in the lateral position a short suture in the superior position. The sentinel lymph node portion of the operation was now undertaken. An area of increased activity was found superior head of the lumpectomy cavity. A blue hot node was identified, level 1 low in the axilla with an in vivo count of 2000 992 and an ex vivo count of 3705. Background counts were negligible. [place] lymph node was removed with electrocautery carefully and sent to pathology for permanent analysis. There were no further sentinel lymph nodes identified. We felt this portion of the operation was complete. We checked the wound cavity for bleeding and there was none. Sponge and needle counts are correct. The wound was closed with 3-0 Vicryl suture, and skin closed with skin glue. Patient tolerated procedure well, extubated, taken recovery in stable condition. The physician assistant service manager, Ms. Magaña, provided assistance during this case by: Assisting with retracting tissue, instillation of local anesthesia and closure of skin incisions.
--- NOTE | 2020-02-23 12:51 | Discharge Summary ---
Discharge Summary (SDC) - Discharge Final Diagnosis: right breast cancer Date of Surgery: 02/23/20 Discharge Date: 02/23/20 Condition: Good Treatment or Instructions: [facility] [address], [place] [address] Care Instructions Following Your Lumpectomy Activities: Resume normal activities when you feel comfortable. It is best to remain as active as possible to speed your recovery. It is common to experience some fatigue after surgery and you may find that short naps are helpful. Avoid strenuous activity such as weight lifting, tennis, etc at your surgical site for two weeks. Perform gentle arm exercises daily and do not favor your operative arm to due increased risk of mobility issues postoperatively. No driving for 7 days after surgery. Do not drive if you are taking pain medication other than Tylenol or Ibuprofen. No swimming, tub baths or soaking in a hot tub for 4 weeks. There are no dietary restrictions. Do not smoke as this impairs wound healing. Surgical Site care: You may shower 24 hours after surgery to include washing the wound with soap and water using your hands. Do not scrub the incision. Pat the area dry with a towel. You do not need to recover the wound although some patients find that they feel more comfortable using a light dressing for a few days to absorb any minimal drainage which may occur. Leave skin glue intact. It will fall off on its own in about 10 days. Medications: Take Toradol 10mg, one pill by mouth every six hours as needed for pain. Do not take additional NSAIDs with medication. You may take additional Tylenol with Toradol. You may experience constipation after surgery while taking pain medications. If using a narcotic on a regular basis, take a stool softener such as Colace twice a day. It is helpful to stay hydrated by drinking lots of fluids. Walking is also helpful and is good exercise after surgery. If you need extra help, use Milk of Magnesia according to the directions on the package. Follow-up: Call our office at to make a follow-up appointment in 10-14 days. Your doctor will call to discuss the pathology report with you as soon as it is available. Concerns: If you had a sentinel lymph node biopsy with your mastectomy, your urine may have a greenish discoloration. This is normal and will resolve as the blue dye slowly leaves your system. If you notice significant leakage around the drains, this is not normal. The drains may be clogged. Please call our office to come in immediately for the drains to be checked. Some bruising may occur and will go away over time. If you have a fever of 101.5 or greater, chills, redness at the incision site, excessive drainage from your wound or severe pain not relieved by pain medication, call your doctor. A physician is available 24 hours a day 7 days a week in addition to regular office hours. If problems arise after normal office hours please call the hospital at . Please call if you have any questions or concerns. Prescriptions: Ketorolac Tromethamine [Toradol 10 mg Tablet] 10 mg PO Q6HP PRN #20 tablet PRN Reason: Referrals: MAT WELLS MD [Primary Care Provider] - Discharge Diet: As Tolerated Discharge Activity: Activity As Tolerated, No Lifting/Push/Pulling, Walk Frequently Report the Following to Your Physician Immediately: Increase in Pain, Fever over 101 Degrees, Unusual Bleeding, Redness, Swelling, Warmth, Increased Soreness, Drainage-Foul Smelling
[2020-02-23 14:48] VITALS: BP 125/89
--- NOTE | 2020-03-02 11:09 | WOMENS IMAGING REPORT ---
EXAM DESCRIPTION: RIGHT DIAGNOSTIC MAMMO W/CAD; WIRE LOC MAMMO IMAGES COMPLETED DATE/TIME: 02/23/2020 10:27 am; 03/02/2020 9:44 am REASON FOR STUDY: RT BREAST C50.911; RT NEEDLE LOCALIZATION C50.911 C50.911 MALIGNANT NEOPLASM OF U NSP SITE OF RIGHT FEMALE TSERING; C50.811 MALIGNANT NEOPLASM OF OVRLP SITES OF RIGHT FEMALE BR Z17.0 E STROGEN RECEPTOR POSITIVE STATUS ER+ E78.00 PURE HYPERCHOLESTEROLEMIA, UNSPECIFIED COMPARISON: None. TECHNIQUE: The clip in the right breast was localized mammographically using a grid marker. The sk in of the breast was prepped in sterile fashion and local anesthesia was provided. The localization needle was advanced to the target. The tip was positioned adjacent to the target and confirmed with two orthogonal views. Surgical dye was not injected for this procedure. The wire was placed through the needle and the hook engaged. Post procedure mammogram demonstrates satisfactory position of the n eedle and wire. Specimen radiograph demonstrates the intact localization wire as well as the targeted lesion within t he biopsy specimen. LIMITATIONS: None. FINDINGS: Procedure as above. Pathology: Invasive ductal carcinoma. IMPRESSION: SUCCESSFUL NEEDLE LOCALIZATION OF THE LESION IN THE RIGHT BREAST. FOLLOW-UP PER THE PATIENT'S SURGEON. TECHNICAL DOCUMENTATION: JOB ID: [id number] 2010 [employer]- All Rights Reserved Reading location - IP/workstation name: [email or web address]
--- NOTE | 2020-03-02 11:09 | WOMENS IMAGING REPORT ---
EXAM DESCRIPTION: RIGHT DIAGNOSTIC MAMMO W/CAD; WIRE LOC MAMMO IMAGES COMPLETED DATE/TIME: 02/23/2020 10:27 am; 03/02/2020 9:44 am REASON FOR STUDY: RT BREAST C50.911; RT NEEDLE LOCALIZATION C50.911 C50.911 MALIGNANT NEOPLASM OF U NSP SITE OF RIGHT FEMALE TSERING; C50.811 MALIGNANT NEOPLASM OF OVRLP SITES OF RIGHT FEMALE BR Z17.0 E STROGEN RECEPTOR POSITIVE STATUS ER+ E78.00 PURE HYPERCHOLESTEROLEMIA, UNSPECIFIED COMPARISON: None. TECHNIQUE: The clip in the right breast was localized mammographically using a grid marker. The sk in of the breast was prepped in sterile fashion and local anesthesia was provided. The localization needle was advanced to the target. The tip was positioned adjacent to the target and confirmed with two orthogonal views. Surgical dye was not injected for this procedure. The wire was placed through the needle and the hook engaged. Post procedure mammogram demonstrates satisfactory position of the n eedle and wire. Specimen radiograph demonstrates the intact localization wire as well as the targeted lesion within t he biopsy specimen. LIMITATIONS: None. FINDINGS: Procedure as above. Pathology: Invasive ductal carcinoma. IMPRESSION: SUCCESSFUL NEEDLE LOCALIZATION OF THE LESION IN THE RIGHT BREAST. FOLLOW-UP PER THE PATIENT'S SURGEON. TECHNICAL DOCUMENTATION: JOB ID: [id number] 2010 [employer]- All Rights Reserved Reading location - IP/workstation name: [email or web address]
--- NOTE | 2020-03-16 16:03 | RADIOLOGY REPORT (SQ) ---
EXAM DESCRIPTION: BREAST SPECIMEN IMAGES COMPLETED DATE/TIME: 03/02/2020 11:04 am REASON FOR STUDY: RIGHT BREAST SPECIMEN IN OR C50.811 MALIGNANT NEOPLASM OF OVRLP SITES OF RIGHT FE MALE BR Z17.0 ESTROGEN RECEPTOR POSITIVE STATUS ER+ E78.00 PURE HYPERCHOLESTEROLEMIA, UNSPECIFIED COMPARISON: None. TECHNIQUE: Specimen radiograph from breast procedure performed in the operating room. LIMITATIONS: None. FINDINGS: Specimen radiograph from breast procedure performed in the operating room. Please see procedure note for details and final pathology. IMPRESSION: Specimen radiograph. TECHNICAL DOCUMENTATION: JOB ID: [id number] Reading location - IP/workstation name: [email or web address]
== END 2020-02-23 14:30 | disposition home or self-care (01) ==
LOC: OROUT 08:33
PROVIDERS: ATTEND Surgery
DX: C50.811 Malignant neoplasm of overlapping sites of right female breast (principal); Z17.0 Estrogen receptor positive status [ER+]; E78.00 Pure hypercholesterolemia, unspecified; Z80.3 Family history of malignant neoplasm of breast; Z79.82 Long term (current) use of aspirin; Z79.899 Other long term (current) drug therapy; E89.0 Postprocedural hypothyroidism; Z03.818 Encounter for observation for suspected exposure to other biological agents ruled out
CPT/HCPCS: 19301; 38500; 36415; 85027; 80048; 88342 ×2; 88305 ×2; 88307 ×2; 78195; 01610; 19281; 76098; 77065; U0003; A9520; J2250; J0690; J1100; J3010; J3490 ×2; J2270; J2405; J2704; Q9968; C9803; 1610; 87635